=== PATIENT | female | born 1985 | race Caucasian/White ===

== ENCOUNTER → 2020-07-12 11:40 | Outpatient (CLI) | payer OTHER, SELFPAY ==
--- NOTE | 2020-07-12 | DI.MRI.S_ITS ---
PROCEDURE: MR LUMBAR SPINE WO CON INDICATIONS: Radiculopathy, lumbar region TECHNIQUE: Noncontrast sagittal T1 spin echo and T2 fast echo, sagittal STIR, axial T1 and T2 fast spin echo through the lumbar spine. In cases with scoliosis, additional coronal T2 fast spin echo may be performed. COMPARISON: Outside Facility, RG, XR L-SPINE 2-3V, 03/04/2020, 12:31. FINDINGS: Image quality: Excellent. Alignment and Curvature: There is normal bony alignment. Bone Marrow: Marrow is of normal overall signal. No acute vertebral body compression fractures. Spinal Cord: Conus medullaris terminates at the L1 level. Visualized cord demonstrates normal signal and size. Paraspinous Soft Tissues: No paravertebral masses. T12-L1: Normal appearance. L1-L2: Normal appearance. L2-L3: Normal appearance. L3-L4: Normal appearance. L4-L5: Mild disc desiccation and minor disc height loss. There is a small right foraminal/lateral T2 hyperintense annular tear. Very slight broad-based posterior and posterolateral disc bulge.. L5-S1: Moderate disc height loss and disc desiccation. There is a focal left paracentral disc herniation measuring 1.3 cm in AP direction with a component of caudal disc extrusion. This does not appear to be affecting the exiting left L5 nerve root, but posteriorly displacing the left lateral recess and left sacral nerve roots. IMPRESSION: 1. Prominent focal left paracentral disc herniation at L5-S1 probably affecting left S1 and S2 nerve roots. 2. Small annular tear in the disc on the are right at the L4-5 level. Dictated by: Neeta Dodge M.D. on 07/14/2020 at 8:59 Approved by: Neeta Dodge M.D. on 07/14/2020 at 9:07
== END ==
PROVIDERS: PCP Family Medicine; Referring Provider Family Medicine; Visit Provider Family Medicine
DX: M51.17 Intervertebral disc disorders with radiculopathy, lumbosacral region (principal)
CPT/HCPCS: 72148

== ENCOUNTER → 2020-09-25 09:23 | Outpatient (CLI) | payer OTHER, SELFPAY ==
[2020-09-25 09:55] LABS: COVID19 -Nasal RAPID Negative (Negative)
== END ==
PROVIDERS: PCP Family Medicine; Visit Provider Physical Medicine & Rehabilitation
DX: Z20.822 Contact with and (suspected) exposure to COVID-19 (principal)
CPT/HCPCS: 87635

== ENCOUNTER 2020-09-25 09:39 | Outpatient (CLI) | payer OTHER, SELFPAY ==
[2020-09-25] VITALS (7 sets, daily range): BP systolic 117–132; BP diastolic 67–88; PULSE 89–96; RESP 10–17; TEMP 36.9; O2SAT 96–100
--- NOTE | 2020-09-25 09:41 | DI.RAD.S_ITS ---
PROCEDURE: PAIN L INTERLAMINAR/CAUDAL INJ INDICATIONS: SPONDYLOSIS COMPARISON: None. FINDINGS: Fluoroscopic spot filming was performed to verify placement of spinal needles at the L5-S1 level(s), as labeled on the films. Appropriate location(s) of the needle tip(s) was confirmed by injection of iodinated contrast. Dictated by: Kobe Han M.D. on 09/25/2020 at 11:30 Approved by: Kobe Han M.D. on 09/25/2020 at 11:30
[2020-09-25] MEDS: fentaNYL 100 MCG/2 ML INJ 50 MCG IV (10:38)
[2020-09-25] MEDS: MIDAZOLAM 5 MG/5 ML VIAL IV (10:38)
[2020-09-25] MEDS: BETAMETHASONE 30 MG/5 ML MDV 6 MG INJ (10:41)
[2020-09-25] MEDS: DEXAMETHASONE 10 MG/ML VIAL 20 MG INJ (10:41)
[2020-09-25] MEDS: BUPIVACAINE 0.25% (PF) VIAL 2 ML INJ (10:41)
[2020-09-25] MEDS: IOPAMIDOL 15 ML VIAL 3 ML INJ (10:41)
--- NOTE | 2020-09-25 10:47 | P.PCN_ITS ---
Date/Time/Diagnoses Date of procedure: 09/25/20 Time of procedure: 10:47 Pre-procedure diagnosis: 1. HNP WITH RADICULAR FEATURES, 2. MULTILEVEL CENTRAL STENOSIS, Post-procedure diagnosis: same Procedure Notes Procedure: 1. FLUOROSCOPICALLY GUIDED CONTRAST CONTROLLED INTERLAMINAR EPIDURAL STEROID INJECTION - L5/S1 Indications: Shayna is referred by Dr. Hurtado for treatment of HNP with left LE symptoms. Physician: Vazquez Merchant Total Fluoroscopy time (seconds): 5 Total sedation minutes: 7 Complications: none Procedure in detail & Post-procedure care: FINDINGS Multilevel Central Spinal Stenosis with Nerve Root Compression DESCRIPTION OF PROCEDURE Fluoroscopically guided, contrast-controlled L5/S1 translaminar epidural steroid injection. Following review of allergy and review of potential side effects and complications, including, but not necessarily limited to, infection, allergic reaction, local tissue breakdown, temporary as well as permanent nerve injury, paralysis, stroke and possible , the patient indicated that the patient understood and agreed to proceed. An informed consent document was signed by the patient, witnessed by a nurse, and placed in the patient's chart. Additionally, other treatment options including modalities, medications, and physical therapy were reviewed with the patient. After review of previous anaesthesic history and IV conscious sedation the patient was deemed safe to proceed with today?s procedure with IV conscious sedation as ASA class II designation. Safety time-out was performed to confirm patient ID, procedure to be performed and site of procedure. IV sedation was accomplished with a combination of 2mg of Versed and 50mcg of Fentanyl administered by the RN after DO order, titrated to patient comfort during the course of the procedure while the patient remained responsive to all verbal commands. In the prone position, following sterile prep and drape of the lumbar region, the L5/S1 translaminar space was identified fluoroscopically. The skin was anesthetized via a 25-gauge, 1.5-inch needle with 1% lidocaine solution. At this point, a 22-gauge short bevel spinal needle was atraumatically introduced and advanced under fluoroscopic guidance into the region of the L5/S1 translaminar space. Depth was confirmed on lateral view. Radiological data, including multiple fluoroscopic views of the lumbar spine, reveal a spinal needle at the L5/S1 translaminar space. Lateral views then show placement of the needle in the epidural space. Subsequent views show contrast material flowing superiorly and inferiorly in the epidural space. No vascular or intrathecal uptake is observed. At this point, using loss of resistance technique with saline and air, the epidural space was entered. This was confirmed following negative aspiration with injection of approximately 1.5cc of Isovue 200, showing excellent epidural flow without vascular or intrathecal uptake. At this point, 1 cc of 1% lidoc niharika solution combined with 3cc or 20mg of dexamethasone and 6mg of betamethasone was injected without incident. The patent tolerated the procedure without signs of symptoms of complications prior to transfer to the recovery area for further monitoring. The patient was then transferred to the recovery area where they were observed for an appropriate period of time after the injection. The patient reported a VAS score of 6 prior to the procedure and a post-procedure VAS of 0. POST OP INSTRUCTIONS The patient was provided a Pain Log to continue to record their response to the target-specific procedure prior to follow-up visit with their referring physician. Additionally, specific post-injection care instructions and a contact number to our office were provided if concerns arise regarding possible complications associated with the procedure are suspected.
== END 2020-09-25 11:10 | disposition home or self-care (01) ==
LOC: RAD 09:41
PROVIDERS: PCP Family Medicine; Referring Provider Physical Medicine & Rehabilitation; Visit Provider Physical Medicine & Rehabilitation
DX: M51.17 Intervertebral disc disorders with radiculopathy, lumbosacral region (principal); M48.07 Spinal stenosis, lumbosacral region; Z20.822 Contact with and (suspected) exposure to COVID-19
CPT/HCPCS: 62323; 87635; C9803; J0702; J1100; J2250; J3010

== ENCOUNTER → 2020-10-03 09:48 | Outpatient (CLI) | payer OTHER, SELFPAY ==
[2020-10-03] MEDS: COVID-19 VACC #1, MRNA(MOD) 100 MCG/0.5 ML VIAL IM (09:55)
== END ==
PROVIDERS: Visit Provider Internal Medicine
DX: Z23 Encounter for immunization (principal)
CPT/HCPCS: 0011A; 91301

== ENCOUNTER → 2020-10-19 13:13 | Outpatient (CLI) | payer OTHER, SELFPAY ==
--- NOTE | 2020-10-19 13:16 | DI.RAD.S_ITS ---
PROCEDURE: XR HAND LT MIN 3V INDICATIONS: 3rd/4th fingers TECHNIQUE: 3 views of the hand(s) acquired. COMPARISON: None. FINDINGS: Bones: There is a comminuted mildly displaced intra-articular fracture of the distal aspect of the proximal phalanx of the ring finger. No additional fractures are identified. Soft tissues: Overlying bandage adjacent to the 3rd and 4th digits. IMPRESSION: Comminuted mildly displaced intra-articular fracture of the distal aspect of the proximal phalanx of the ring finger. Dictated by: on 10/19/2020 at 12:42 Approved by: on 10/19/2020 at 12:44
== END ==
PROVIDERS: PCP Family Medicine; Referring Provider Physician Assistant; Visit Provider Physician Assistant
DX: M79.645 Pain in left finger(s) (principal); S62.615A Displaced fracture of proximal phalanx of left ring finger, initial encounter for closed fracture; X58.XXXA Exposure to other specified factors, initial encounter
CPT/HCPCS: 73130

== ENCOUNTER → 2020-10-31 09:14 | Outpatient (CLI) | payer OTHER, SELFPAY ==
[2020-10-31] MEDS: COVID-19 VACC #2, MRNA(MOD) 100 MCG/0.5 ML VIAL IM (09:22)
== END ==
PROVIDERS: PCP Family Medicine; Visit Provider Internal Medicine
DX: Z23 Encounter for immunization (principal)
CPT/HCPCS: 0012A; 91301

== ENCOUNTER → 2022-08-31 10:31 | Outpatient (CLI) | payer OTHER, SELFPAY | PROVIDERS: PCP Physician Assistant; Visit Provider Physician Assistant | DX: R30.0 Dysuria (principal) | CPT/HCPCS: 87077; 87086; 87186 ==